=== PATIENT | male | born 1945 | race Caucasian/White ===

== ENCOUNTER 2023-09-22 10:31 | Day surgery (SDC) | payer MEDICARE, BC ==
[2023-09-18 11:31] LABS: BASOPHILS # (AUTO) 0.1 X10'3 (0-0.2); BASOPHILS % (AUTO) 1.9 % (0-1); EOSINOPHILS # (AUTO) 0.2 X10'3 (0-0.9); EOSINOPHILS % (AUTO) 2.5 % (0-6); LYMPHOCYTES # (AUTO) 1.7 X10'3 (1.1-4.8); LYMPHOCYTES % (AUTO) 23.2 % (21-51); MEAN CORPUSCULAR HEMOGLOBIN 30.3 PG (27.0-31.0); MEAN CORPUSCULAR VOLUME 91.8 FL (78-98); MEAN PLATELET VOLUME 8.2 FL (7.4-10.4); MONOCYTES # (AUTO) 0.5 X10'3 (0-0.9); MONOCYTES % (AUTO) 6.4 % (2-12); NEUTROPHILS # (AUTO) 4.8 X10'3 (1.8-7.7); PRE OP HEMATOCRIT 42.5 % (42.0-52.0); PRE OP PLATELET COUNT 195 X10'3 (140-440); PRE OP WHITE BLOOD COUNT 7.3 10'3 (4.8-10.8); RED BLOOD COUNT 4.63 X10'6 (4.70-6.10); RED CELL DISTRIBUTION WIDTH 13.6 % (11.5-14.5)
[2023-09-18 11:39] LABS: ALBUMIN 3.6 G/DL (3.4-5.0); ALKALINE PHOSPHATASE 86 IU/L (46-116); BLOOD UREA NITROGEN 14 MG/DL (7-18); BUN/CREATININE RATIO 13.1 (10.0-20.0); CALCIUM 8.8 MG/DL (8.5-10.1); CHLORIDE 108 MMOL/L (99-107); CREATININE 1.07 MG/DL (0.60-1.10); PRE OP ALT 16 U/L (30-65); PRE OP ANION GAP 9 (8-16); PRE OP AST 16 U/L (10-37); PRE OP BILIRUB, TOTAL 0.5 MG/DL (0.0-1.0); PRE OP GLUCOSE 87 MG/DL (70-104); PRE OP POTASSIUM 4.2 MMOL/L (3.4-5.1); PRE OP SODIUM 143 MMOL/L (135-145); TOTAL CARBON DIOXIDE 26.4 MMOL/L (24-32); TOTAL PROTEIN 7.3 G/DL (6.4-8.2); eGFR 66 ML/MIN
[~2023-09-22] VITALS: Ht 188 cm; Wt 101.3 kg
[2023-09-22] VITALS (9 sets, daily range): BP systolic 151–174; BP diastolic 85–95; PULSE 46–57; RESP 10–16; TEMP 97.4; O2SAT 96–98
[~2023-09-22 10:31] MED LIST: ASPI-845 PO; LISI5TAB22 PO; ROSU5TAB12 PO
[2023-09-22] MEDS: famotidine 20mg tablet PO ONE (11:33)
[2023-09-22] MEDS: ringers solution, lacted 1,000 ML IV SCH (11:33)
[2023-09-22] MEDS: cefazolin 2gm/D5W 100mL 100 ML IV ONE (11:34)
[2023-09-22] MEDS ORDERED: LIDOcaine 1% 30ml preserv. free vial ONE (14:12)
[2023-09-22] MEDS ORDERED: fentaNYL/PF 50MCG/1 ML 2ML syringe ONE (14:45)
[2023-09-22] MEDS ORDERED: midazolam 1 mg/ML 2ml injection ONE (14:46)
[2023-09-22] MEDS ORDERED: glycopyrrolate 0.2mg/ml inj ONE (15:21)
== END 2023-09-22 16:26 | disposition home or self-care (01) ==
LOC: PAS 10:31
PROVIDERS: ATTEND Orthopaedic Surgery Hand Surgery
DX: M72.0 Palmar fascial fibromatosis [Dupuytren] (principal); I10 Essential (primary) hypertension; Z86.73 Personal history of transient ischemic attack (TIA), and cerebral infarction without residual deficits; Z87.891 Personal history of nicotine dependence; Z79.82 Long term (current) use of aspirin; Z79.899 Other long term (current) drug therapy; Z98.890 Other specified postprocedural states
CPT/HCPCS: 26123; 36415; 80053; 82948; 85025; 93005; A4215; A4618; A6222; A6402; A6449; A7000; J0690; J2001; J2250; J3010; J3490; J7030; J7120; Z7506; Z7512; Z7610